=== PATIENT | female | born 1995 | race Hispanic/Latino ===

== ENCOUNTER 2021-09-16 22:45 | Observation (INO) | payer OTHER ==
[2021-09-16] MEDS ORDERED: Acetaminophen 325 MG TAB PO PRN (23:37)
[2021-09-16] MEDS ORDERED: cefTRIAXone\\ROCEPHIN 1 GM in Sodium Chloride 0.9% 100 ML IVPB SCH (23:59)
[2021-09-17 03:48] LABS: #Eosinphils 0.1 10x3/uL (0.0-0.5); #Monocytes 0.9 10x3/uL (0.0-1.1); %Basophils 0.3 % (0.0-2.0); %Eosinophils 0.7 % (0.0-6.0); %Lymphocytes 14.5 % (18.0-47.0); %Monocytes 7.4 % (0.0-10.0); %Neutrophils 76.3 % (40.0-75.0); Hemoglobin 10.1 g/dL (12.0-15.5); Mean Corpuscular HGB CONC 34.7 g/dL (32.0-36.0); Mean Corpuscular Hemoglobin 31.5 pg (27.0-33.0); Mean Corpuscular Volume 90.7 fl (81.6-98.3); Mean Platelet Volume 9.6 fl (7.4-10.4); Platelet Count 232 10x3/uL (150-450); RBC Distribution Width 12.7 % (11.5-14.5); Red Blood Cell (RBC) Count 3.21 10x6/uL (3.90-5.03); White Blood Cell (WBC) Count 11.8 10x3/uL (3.5-10.5)
[2021-09-17 04:11] LABS: ALT (SGPT) 6 U/L (8-55); AST (SGOT) 9 U/L (5-34); Albumin 2.8 g/dL (3.5-5.0); Alkaline Phosphatase 107 U/L (40-110); Anion Gap 13 mmol/L (10-20); BUN (Urea Nitrogen) 6 mg/dL (7.0-18.7); Bilirubin, Total 0.5 mg/dL (0.2-1.2); Calc. Creatinine Clearance 0 mL/min (70-130); Calcium 8.4 mg/dL (7.8-10.44); Carbon Dioxide 20 mmol/L (22-29); Chloride 106 mmol/L (98-107); Globulin 2.9 g/dL (2.4-3.5); Glucose 118 mg/dL (70-105); Potassium 3.4 mmol/L (3.5-5.1); Protein, Total 5.7 g/dL (6.0-8.3); Sodium 136 mmol/L (136-145)
[2021-09-17 11:38] VITALS: BP 89/54; TEMP 97.7
== END 2021-09-17 19:45 | disposition home or self-care (01) ==
LOC: CSHPP 22:45
PROVIDERS: ADMIT Obstetrics & Gynecology; ATTEND Obstetrics & Gynecology
DX: O23.12 Infections of bladder in pregnancy, second trimester (principal); N30.00 Acute cystitis without hematuria; O99.891 Other specified diseases and conditions complicating pregnancy; N13.30 Unspecified hydronephrosis; N13.4 Hydroureter; O34.219 Maternal care for unspecified type scar from previous cesarean delivery; O99.012 Anemia complicating pregnancy, second trimester; Z3A.24 24 weeks gestation of pregnancy; Z79.82 Long term (current) use of aspirin; Z88.1 Allergy status to other antibiotic agents
CPT/HCPCS: 36415; 80053; 85025; J0696; J3490

== ENCOUNTER 2021-12-14 08:41 | Inpatient (IN) | payer OTHER ==
[2021-12-14] MEDS: Lactated Ringer's 1,000 ML IV SCH ×2 (09:00→10:30)
[2021-12-14] MEDS ORDERED: Azithromycin 500 MG in Sodium Chloride 0.9% 250 ML 250 ML IVPB SCH (09:30)
[2021-12-14] MEDS ORDERED: Ondansetron PF 4 MG/2 ML Vial IVP PRN ×2 (09:30→10:33)
[2021-12-14] MEDS ORDERED: hydrALAZINE 20 MG/ML VIAL SLOW IVP PRN ×2 (09:30→14:20)
[2021-12-14] MEDS ORDERED: Acetaminophen 500 MG TAB PO PRN (09:30)
[2021-12-14] MEDS ORDERED: Famotidine/PF 20 mg/2ml Vial SLOW IVP PRN (09:30)
[2021-12-14] MEDS ORDERED: Bicitra 30 ML UDCUP PO PRN (09:30)
[2021-12-14] MEDS ORDERED: Butorphanol Tartrate 1 MG/ML VIAL SLOW IVP PRN (09:30)
[2021-12-14] MEDS ORDERED: Promethazine HCl 25 MG/ML VIAL IM PRN ×2 (09:30→10:33)
[2021-12-14] MEDS ORDERED: Carboprost 250 MCG/ML AMP IM PRN (09:33)
[2021-12-14] MEDS ORDERED: Misoprostol 200 MCG TAB PR PRN (09:33)
[2021-12-14] MEDS ORDERED: CEFAZOLIN 2 GM in Sodium Chloride 0.9% 100 ML IVPB SCH (09:45)
[2021-12-14] MEDS ORDERED: NS w/ Oxytocin 30 units 500 ML IV SCH (09:45)
[2021-12-14 09:56] VITALS: BMI 31.1
[2021-12-14] MEDS ORDERED: Tranexamic Acid 1,000 MG/10 ML VIAL ONE ×2 (10:10→10:23)
[2021-12-14] MEDS ORDERED: Methylergonovine 0.2 MG/ML VIAL ONE (10:11)
[2021-12-14] MEDS ORDERED: Ondansetron PF 4 MG/2 ML Vial ONE (10:22)
[2021-12-14] MEDS ORDERED: Morphine PF 10 MG/10 ML VIAL ONE (10:22)
[2021-12-14] MEDS ORDERED: Ketorolac Tromethamine 30 MG/ML VIAL ONE (10:22)
[2021-12-14] MEDS ORDERED: Fentanyl 100 MCG/2 ML VIAL ONE (10:22)
[2021-12-14] MEDS ORDERED: Phenylephrine 10 MG/ML VIAL ONE (10:23)
[2021-12-14] MEDS ORDERED: Oxytocin 10 UNITS/ML VIAL ONE ×2 (10:23→11:48)
[2021-12-14] MEDS ORDERED: Methylergonovine 0.2 MG/ML VIAL IVP PRN (10:25)
[2021-12-14] MEDS ORDERED: Naloxone HCl 0.4 mg/ml Vial IVP PRN ×2 (10:33)
[2021-12-14] MEDS ORDERED: HYDROmorphone 2 MG/ML VIAL SLOW IVP PRN (10:33)
[2021-12-14] MEDS ORDERED: Promethazine HCl 25 MG SUPP PR PRN (10:33)
[2021-12-14] MEDS ORDERED: Fentanyl 100 MCG/2 ML VIAL SLOW IVP PRN (10:33)
[2021-12-14] MEDS ORDERED: diphenhydrAMINE 50 MG/ML VIAL IVP PRN (10:33)
[2021-12-14] MEDS ORDERED: Ondansetron HCl/PF 4 MG/2 ML Vial IVP PRN (10:33)
[2021-12-14] MEDS ORDERED: Moisturizing Cream (Eucerin) 113 GM JAR TOP PRN (10:33)
[2021-12-14] MEDS ORDERED: Ketorolac Tromethamine 30 MG/ML VIAL IVP PRN (10:33)
[2021-12-14] MEDS ORDERED: Naloxone HCl 0.4 mg/ml Vial IV PRN (10:33)
[2021-12-14] MEDS ORDERED: Meperidine HCl/PF 25 MG/ML VIAL SLOW IVP PRN (10:33)
[2021-12-14 10:37] LABS: Hemoglobin 12.7 g/dL (12.0-15.5); Mean Corpuscular HGB CONC 34.2 g/dL (32.0-36.0); Mean Corpuscular Hemoglobin 28.9 pg (27.0-33.0); Mean Corpuscular Volume 84.5 fl (81.6-98.3); Mean Platelet Volume 10.1 fl (7.4-10.4); Platelet Count 217 10x3/uL (150-450); RBC Distribution Width 13.2 % (11.5-14.5); Red Blood Cell (RBC) Count 4.39 10x6/uL (3.90-5.03); White Blood Cell (WBC) Count 9.6 10x3/uL (3.5-10.5)
[2021-12-14] MEDS ORDERED: Communication Order-Pharmacy FS SCH (10:45)
[2021-12-14] MEDS ORDERED: Ketorolac Tromethamine 30 MG/ML VIAL IVP SCH ×2 (10:45→21:30)
[2021-12-14 11:10] LABS: Syphilis Antibody Nonreactive (Nonreactive); Syphilis Antibody Index 0.05 S/CO (<1.00 Non-Reactive)
[2021-12-14 11:50] LABS: RapidComm Collect By CBN
[2021-12-14 11:58] LABS: RapidComm Collect By CBN; pH (Cord, venous) 7.342 (7.250-7.350)
[2021-12-14] MEDS ORDERED: PHENYLEPHRINE-NS 100 MCG/ML 10 ML SYRINGE ONE (12:09)
[2021-12-14 12:12] LABS: Hep B Surf Ag Non-Reactive S/CO (NonReactive)
[2021-12-14 12:13] LABS: HIV (1/2) Antibody/Antigen Non-Reactive (NonReactive); HIV 1/2 INDEX 0.09 S/CO (<1.00)
[2021-12-14 13:22] LABS: HBSAg Index 0.27 S/CO (0-0.99)
[2021-12-14] MEDS ORDERED: Measles/Mumps/Rubella 10 MCG/0.5 ML VIAL SC ONE (14:20)
[2021-12-14] MEDS ORDERED: Boostrix 0.5 ML (Tdap) VIAL IM ONE (14:20)
[2021-12-14] MEDS: Ibuprofen 800 MG TAB PO SCH ×2 (15:04→22:38)
[2021-12-14] MEDS ORDERED: Morphine 2 MG/ML VIAL SLOW IVP PRN (16:50)
[2021-12-14] MEDS ORDERED: Morphine 2 MG/ML VIAL SLOW IVP SCH (17:00)
[2021-12-14] MEDS ORDERED: Metoclopramide HCl 10 MG/2 ML VIAL IVP SCH (19:00)
[2021-12-14] MEDS: Prenatal Vitamin 1 TAB PO SCH (20:43)
[2021-12-14] MEDS ORDERED: Famotidine/PF 20 mg/2ml Vial SLOW IVP SCH (21:30)
[2021-12-14] MEDS ORDERED: HYDROcodone/Acetaminophen 5/325 mg Tablet PO PRN (23:00)
[2021-12-15 04:55] LABS: Hemoglobin 9.4 g/dL (12.0-15.5); Mean Corpuscular HGB CONC 34.2 g/dL (32.0-36.0); Mean Corpuscular Hemoglobin 29.7 pg (27.0-33.0); Mean Corpuscular Volume 86.8 fl (81.6-98.3); Mean Platelet Volume 10.3 fl (7.4-10.4); Platelet Count 208 10x3/uL (150-450); RBC Distribution Width 13.2 % (11.5-14.5); Red Blood Cell (RBC) Count 3.17 10x6/uL (3.90-5.03); White Blood Cell (WBC) Count 10.4 10x3/uL (3.5-10.5)
[2021-12-15] MEDS: Ibuprofen 800 MG TAB PO SCH ×3 (05:14→21:13)
[2021-12-15] MEDS: Acetaminophen 500 MG TAB PO SCH ×3 (08:19→21:12)
[2021-12-15] MEDS: Ferrous Sulfate 325 MG TAB PO SCH (08:21)
[2021-12-15] MEDS: HYDROcodone/Acetaminophen 5/325 mg Tablet PO PRN (16:43)
[2021-12-15] MEDS: Prenatal Vitamin 1 TAB PO SCH (21:13)
[2021-12-16] MEDS: HYDROcodone/Acetaminophen 5/325 mg Tablet PO PRN ×4 (03:35→22:11)
[2021-12-16] MEDS: Acetaminophen 500 MG TAB PO SCH ×4 (03:36→22:02)
[2021-12-16] MEDS: Ibuprofen 800 MG TAB PO SCH ×3 (05:03→22:11)
[2021-12-16] MEDS: Ferrous Sulfate 325 MG TAB PO SCH (08:34)
[2021-12-16] MEDS: Prenatal Vitamin 1 TAB PO SCH (22:10)
[2021-12-17] MEDS: Acetaminophen 500 MG TAB PO SCH ×2 (05:12→08:13)
[2021-12-17] MEDS: Ibuprofen 800 MG TAB PO SCH (05:14)
[2021-12-17] MEDS: HYDROcodone/Acetaminophen 5/325 mg Tablet PO PRN ×2 (05:16→08:14)
[2021-12-17 07:56] VITALS: BP 117/77; TEMP 97.7
[2021-12-17] MEDS: Ferrous Sulfate 325 MG TAB PO SCH (08:14)
== END 2021-12-17 12:50 | disposition home or self-care (01) | DRG 788 ==
LOC: CSHLD/OP 08:41 → CSHLD 10:03 → CSHPP 14:25
PROVIDERS: ADMIT Obstetrics & Gynecology; ATTEND Obstetrics & Gynecology
PROC: 10D00Z1 Extraction of Products of Conception, Low, Open Approach (ICD-10-PCS; principal; 2021-12-14)
DX: O42.013 Preterm premature rupture of membranes, onset of labor within 24 hours of rupture, third trimester (principal); Z3A.36 36 weeks gestation of pregnancy; Z37.0 Single live birth; Z20.822 Contact with and (suspected) exposure to COVID-19; Z87.440 Personal history of urinary (tract) infections; O34.211 Maternal care for low transverse scar from previous cesarean delivery; Z79.82 Long term (current) use of aspirin; Z88.8 Allergy status to other drugs, medicaments and biological substances; O99.62 Diseases of the digestive system complicating childbirth; K66.0 Peritoneal adhesions (postprocedural) (postinfection); O32.8XX0 Maternal care for other malpresentation of fetus, not applicable or unspecified
CPT/HCPCS: 36415; 51702; 82805; 85027; 86780; 86850; 86900; 86901; 87340; 87389; 90707; 99285; J1885; J2270; J2274; J2370; J2405; J2550; J2590; J3010; J7120; S0028; U0003; U0005